=== PATIENT | female | born 1970 | race Caucasian/White ===

== ENCOUNTER → 2017-03-07 | Outpatient (CLI) | payer BC, OTHER ==
[~2017-03-07] MED LIST: AMITIZA 24 MCG24 MC1 PO; FLEXERIL PO; HYDROCODONE-APA1 TA1 PO; NEXIUM40 MG PO; RESTASIS1 EACH OPHTHALMIC; VALIUM5 MG PO
== END ==
LOC: RAD 10:04
DX: K21.9 Gastro-esophageal reflux disease without esophagitis (principal); R10.13 Epigastric pain; R13.10 Dysphagia, unspecified

== ENCOUNTER → 2017-03-09 | Outpatient (CLI) | payer BC, OTHER ==
[~2017-03-09] VITALS: Ht 160 cm; Wt 45.4 kg
== END | disposition home or self-care (01) ==
LOC: GI 03-08 11:08
DX: K21.9 Gastro-esophageal reflux disease without esophagitis (principal); K44.9 Diaphragmatic hernia without obstruction or gangrene; F41.8 Other specified anxiety disorders; Z98.890 Other specified postprocedural states; Z88.0 Allergy status to penicillin
CPT/HCPCS: 62110; 62900